=== PATIENT | male | born 1965 | race Caucasian/White ===

== ENCOUNTER 2025-05-02 08:44 | Inpatient (IN) | payer BC ==
[2025-05-02 10:04] LABS: #Basophils Less than 0.03 10x3/uL (0.0-0.2); #Eosinophils Less than 0.03 10x3/uL (0.0-0.7); #Monocytes 0.53 10x3/uL (0.11-0.59); #Neutrophils 16.37 10x3/uL (1.40-6.50); %Basophils 0.1 % (0.0-1.0); %Eosinophils 0.0 % (0.0-10.0); %Lymphocytes 1.0 % (21.0-51.0); %Monocytes 3.0 % (0.0-10.0); %Neutrophils 93.7 % (42.0-75.0); Hematocrit 37.8 % (42.0-52.0); Hemoglobin 12.7 g/dL (14.0-18.0); Mean Corpuscular Hemoglobin 26.8 pg (27.0-31.0); Mean Corpuscular Volume 79.7 fL (78.0-98.0); Platelet Count 78 10x3/uL (130-400); Red Blood Cell (RBC) Count 4.74 mill/uL (4.70-6.10); White Blood Cell (WBC) Count 17.48 10x3/uL (4.8-10.8)
[2025-05-02 10:06] LABS: INR-International Normal Ratio 1.3; PTT 26.6 sec (22.9-36.1); Prothrombin Time 16.6 sec (12.0-14.7)
[2025-05-02 10:21] LABS: Analyzer IN Cardio ER; Base Excess -11.8 mEq/L (-2.0 to +3.0); Calcium, Ionized (venous) 1.15 mmol/L (1.16-1.32); Chloride (VBG) 91 mmol/L (98-106); Hematocrit-VBG 34 % (42.0-52.0); Hemoglobin (Hb) 11.6 g/dL (13.1-17.2); Potassium (VBG) 5.27 mmol/L (3.70-5.30)
[2025-05-02 10:25] LABS: ALT (SGPT) 17 U/L (Less than 45); AST (SGOT) 23 U/L (11-34); Albumin 2.2 g/dL (3.1-4.5); Alkaline Phosphatase 124 U/L (40-110); Anion Gap 19 mmol/L (10-20); BUN (Urea Nitrogen) 93 mg/dL (8.4-25.7); Bilirubin, Total 0.9 mg/dL (0.3-1.2); Calc. Creatinine Clearance 0 mL/min (70-130); Calcium 7.8 mg/dL (7.8-10.44); Carbon Dioxide 14 mmol/L (22-29); Chloride 91 mmol/L (98-107); Globulin 2.4 g/dL (2.4-3.5); Glucose 190 mg/dL (70-105); Potassium 6.4 mmol/L (3.5-5.1); Sodium 119 mmol/L (136-145)
[2025-05-02 10:29] LABS: Actual Bicarbonate (HCO3v) 14.3 mEq/L (22-28)
[2025-05-02 10:30] LABS: Sodium 118 mmol/L (133-146)
[2025-05-02 10:45] LABS: Anisocytosis SLIGHT = 6-15 cells HPF (0-5); Burr Cells MARKED = >16 cells HPF (0-1); Macrocytosis SLIGHT = 6-15 cells HPF (0-5); Microcytosis SLIGHT = 6-15 cells HPF (0-5); Platelet Adequacy Comment Platelets Decreased; Poikilocytosis SLIGHT = 6-15 cells HPF (0-5); Polychromasia MODERATE = 3-4 cells HPF (0-2); Schistocytes SLIGHT = 2-5 cells HPF (0-1)
[2025-05-02] MEDS ORDERED: Albuterol 2.5 MG (3 mL) NEB ONE (10:50)
[2025-05-02] MEDS ORDERED: Sodium Polystyrene Sulfonate 15 GM (60 mL) BOT ONE (10:53)
[2025-05-02] MEDS ORDERED: Dextrose 50% Abboject 50 ML SYRINGE ONE (10:53)
[2025-05-02] MEDS ORDERED: Sodium Bicarb 50 MEQ/50 ML Abboject 8.4% SYRINGE ONE (10:53)
[2025-05-02] MEDS ORDERED: CALCIUM GLUC 1 GM/NS 50 ML IV Bag ONE (10:56)
[2025-05-02 12:54] LABS: Uric Acid 10.6 mg/dL (3.7-7.7)
[2025-05-02 14:00] LABS: Osmolality, Serum 286 mOsm/kg (275-295)
[2025-05-02] MEDS: Albumin 25% 25 GM (100 mL) BOT IVPB SCH ×2 (15:31→18:12)
[2025-05-02] MEDS: Heparin 5,000 UNITS/ML VIAL SC SCH (15:35)
[2025-05-02 15:55] LABS: Fluid, Triglycerides 71 mg/dL (Not Available); Pleural Fluid, Amylase Less than 30 U/L (Not Available); Pleural Fluid, Glucose 187 mg/dL; Pleural Fluid, LDH 121 U/L (Not Available); Pleural Fluid, Protein 2.8 g/dL
[2025-05-02 16:00] LABS: Fluid, pH - Pleural Fld 7.376 (7.60 - 7.66)
[2025-05-02 16:05] LABS: RBC Count-Automated (BF) 3339 /cu.mm; WBC/Nucleated-Auto (BF) 320 /cu.mm
[2025-05-02 16:33] LABS: BF Segmented Neutrophils 85 %; Cell Count Non Hematic 3 %
[2025-05-02] MEDS: Hydrocortisone Sod Succ/PF 100 mg/2 ml Vial IVP SCH (18:12)
[2025-05-02 18:57] LABS: Albumin 1.9 g/dL (3.1-4.5); Anion Gap 23 mmol/L (10-20); BUN (Urea Nitrogen) 86 mg/dL (8.4-25.7); BUN/Creatinine Ratio 25.67; Calc. Creatinine Clearance 0 mL/min (70-130); Calcium 8.0 mg/dL (7.8-10.44); Carbon Dioxide 10 mmol/L (22-29); Chloride 94 mmol/L (98-107); Glucose 186 mg/dL (70-105); Potassium 5.9 mmol/L (3.5-5.1); Sodium 121 mmol/L (136-145)
[2025-05-02 23:12] LABS: Osmolality, Urine 399 mOsm/kg (50-1200)
[2025-05-03 01:50] LABS: Anion Gap 16 mmol/L (10-20); BUN (Urea Nitrogen) 89 mg/dL (8.4-25.7); Calc. Creatinine Clearance 26 mL/min (70-130); Calcium 7.3 mg/dL (7.8-10.44); Carbon Dioxide 18 mmol/L (22-29); Chloride 89 mmol/L (98-107); Glucose 234 mg/dL (70-105); Potassium 5.0 mmol/L (3.5-5.1); Sodium 118 mmol/L (136-145)
[2025-05-03 04:57] LABS: #Basophils Less than 0.03 10x3/uL (0.0-0.2); #Eosinophils Less than 0.03 10x3/uL (0.0-0.7); #Monocytes 0.14 10x3/uL (0.11-0.59); #Neutrophils 3.93 10x3/uL (1.40-6.50); %Basophils 0.0 % (0.0-1.0); %Eosinophils 0.0 % (0.0-10.0); %Lymphocytes 1.9 % (21.0-51.0); %Monocytes 3.3 % (0.0-10.0); %Neutrophils 93.1 % (42.0-75.0); Hematocrit 22.3 % (42.0-52.0); Hemoglobin 7.8 g/dL (14.0-18.0); Mean Corpuscular Hemoglobin 27.0 pg (27.0-31.0); Mean Corpuscular Volume 77.2 fL (78.0-98.0); Platelet Count 45 10x3/uL (130-400); Red Blood Cell (RBC) Count 2.89 mill/uL (4.70-6.10); White Blood Cell (WBC) Count 4.22 10x3/uL (4.8-10.8)
[2025-05-03 06:25] LABS: ALT (SGPT) 12 U/L (Less than 45); AST (SGOT) 15 U/L (11-34); Albumin 2.1 g/dL (3.1-4.5); Alkaline Phosphatase 81 U/L (40-110); Anion Gap 12 mmol/L (10-20); BUN (Urea Nitrogen) 86 mg/dL (8.4-25.7); Bilirubin, Total 1.0 mg/dL (0.3-1.2); Calc. Creatinine Clearance 28 mL/min (70-130); Calcium 7.1 mg/dL (7.8-10.44); Carbon Dioxide 22 mmol/L (22-29); Chloride 91 mmol/L (98-107); Globulin 1.6 g/dL (2.4-3.5); Glucose 279 mg/dL (70-105); Potassium 4.4 mmol/L (3.5-5.1); Sodium 121 mmol/L (136-145); Uric Acid 2.3 mg/dL (3.7-7.7)
[2025-05-03] MEDS: Allopurinol 100 MG TAB PO SCH (07:49)
[2025-05-03] MEDS: Pantoprazole 40 MG DR.TAB PO SCH ×2 (10:58→11:07)
[2025-05-03 11:20] LABS: RBC Count-Automated (BF) 969 /cu.mm; WBC/Nucleated-Auto (BF) 75 /cu.mm
[2025-05-03 12:13] LABS: BF Segmented Neutrophils 31 %; Cell Count Non Hematic 29 %
[2025-05-03 14:16] LABS: Albumin 2.4 g/dL (3.1-4.5); Anion Gap 17 mmol/L (10-20); BUN (Urea Nitrogen) 88 mg/dL (8.4-25.7); BUN/Creatinine Ratio 27.76; Calc. Creatinine Clearance 28 mL/min (70-130); Calcium 7.1 mg/dL (7.8-10.44); Carbon Dioxide 21 mmol/L (22-29); Chloride 92 mmol/L (98-107); Glucose 341 mg/dL (70-105); Potassium 4.2 mmol/L (3.5-5.1); Sodium 126 mmol/L (136-145)
[2025-05-03] MEDS ORDERED: Albuterol 200 PUFF (6.7GM INHALER) INH PRN (16:31)
[2025-05-03] MEDS: Albumin 25% 25 GM (100 mL) BOT IVPB SCH (18:11)
[2025-05-03] MEDS: Hydrocortisone Sod Succ/PF 100 mg/2 ml Vial IVP SCH (20:24)
[2025-05-03] MEDS: CALQUENCE PO SCH (20:25)
[2025-05-04 03:48] LABS: #Basophils Less than 0.03 10x3/uL (0.0-0.2); #Eosinophils Less than 0.03 10x3/uL (0.0-0.7); #Monocytes 0.22 10x3/uL (0.11-0.59); #Neutrophils 4.49 10x3/uL (1.40-6.50); %Basophils 0.2 % (0.0-1.0); %Eosinophils 0.0 % (0.0-10.0); %Lymphocytes 3.6 % (21.0-51.0); %Monocytes 4.4 % (0.0-10.0); %Neutrophils 90.2 % (42.0-75.0); Hematocrit 28.4 % (42.0-52.0); Hemoglobin 9.2 g/dL (14.0-18.0); Mean Corpuscular Hemoglobin 26.7 pg (27.0-31.0); Mean Corpuscular Volume 82.3 fL (78.0-98.0); Platelet Count 30 10x3/uL (130-400); Red Blood Cell (RBC) Count 3.45 mill/uL (4.70-6.10); White Blood Cell (WBC) Count 4.98 10x3/uL (4.8-10.8)
[2025-05-04 03:51] LABS: ALT (SGPT) 13 U/L (Less than 45); AST (SGOT) 15 U/L (11-34); Albumin 2.3 g/dL (3.1-4.5); Alkaline Phosphatase 89 U/L (40-110); Anion Gap 15 mmol/L (10-20); BUN (Urea Nitrogen) 90 mg/dL (8.4-25.7); Bilirubin, Total 0.9 mg/dL (0.3-1.2); Calc. Creatinine Clearance 31 mL/min (70-130); Calcium 7.2 mg/dL (7.8-10.44); Carbon Dioxide 27 mmol/L (22-29); Chloride 92 mmol/L (98-107); Globulin 1.7 g/dL (2.4-3.5); Glucose 236 mg/dL (70-105); Potassium 3.5 mmol/L (3.5-5.1); Sodium 130 mmol/L (136-145)
[2025-05-04] MEDS: Furosemide 20 MG (2 mL) VIAL SLOW IVP SCH ×3 (08:43→20:50)
[2025-05-04] MEDS: Melatonin 3 MG TAB PO PRN (21:20)
[2025-05-05 07:39] LABS: #Basophils Less than 0.03 10x3/uL (0.0-0.2); #Eosinophils Less than 0.03 10x3/uL (0.0-0.7); #Monocytes 0.32 10x3/uL (0.11-0.59); #Neutrophils 3.97 10x3/uL (1.40-6.50); %Basophils 0.0 % (0.0-1.0); %Eosinophils 0.2 % (0.0-10.0); %Lymphocytes 6.4 % (21.0-51.0); %Monocytes 6.8 % (0.0-10.0); %Neutrophils 84.7 % (42.0-75.0); Hematocrit 26.6 % (42.0-52.0); Hemoglobin 8.8 g/dL (14.0-18.0); Mean Corpuscular Hemoglobin 27.2 pg (27.0-31.0); Mean Corpuscular Volume 82.1 fL (78.0-98.0); Platelet Count 19 10x3/uL (130-400); Red Blood Cell (RBC) Count 3.24 mill/uL (4.70-6.10); White Blood Cell (WBC) Count 4.69 10x3/uL (4.8-10.8)
[2025-05-05] MEDS: Hydrocortisone Sod Succ/PF 100 mg/2 ml Vial IVP SCH (09:45)
[2025-05-05] MEDS: Acetaminophen 500 MG TAB PO SCH (13:30)
[2025-05-05] MEDS: diphenhydrAMINE 50 MG/ML VIAL IVP SCH (13:31)
[2025-05-05] MEDS: RITUXIMAB ARRX IVPB SCH (13:38)
[2025-05-05] MEDS: [UNRECOGNIZED DRUG - OTHER] IVPB SCH (13:38)
[2025-05-05] MEDS: Furosemide 40 MG (4 mL) VIAL SLOW IVP SCH (15:33)
[2025-05-05] MEDS: Albumin 25% 25 GM (100 mL) BOT IVPB SCH ×2 (15:56→20:09)
[2025-05-05 17:11] LABS: ALT (SGPT) 19 U/L (Less than 45); AST (SGOT) 23 U/L (11-34); Albumin 2.5 g/dL (3.1-4.5); Alkaline Phosphatase 69 U/L (40-110); Anion Gap 14 mmol/L (10-20); BUN (Urea Nitrogen) 70 mg/dL (8.4-25.7); Bilirubin, Total 0.8 mg/dL (0.3-1.2); Calc. Creatinine Clearance 40 mL/min (70-130); Calcium 7.4 mg/dL (7.8-10.44); Carbon Dioxide 30 mmol/L (22-29); Chloride 93 mmol/L (98-107); Globulin 1.6 g/dL (2.4-3.5); Glucose 179 mg/dL (70-105); Potassium 3.2 mmol/L (3.5-5.1); Sodium 134 mmol/L (136-145); Uric Acid 1.6 mg/dL (3.7-7.7)
[2025-05-06 06:50] LABS: #Basophils Less than 0.03 10x3/uL (0.0-0.2); #Eosinophils Less than 0.03 10x3/uL (0.0-0.7); #Monocytes 0.24 10x3/uL (0.11-0.59); #Neutrophils 4.25 10x3/uL (1.40-6.50); %Basophils 0.2 % (0.0-1.0); %Eosinophils 0.4 % (0.0-10.0); %Lymphocytes 5.4 % (21.0-51.0); %Monocytes 4.9 % (0.0-10.0); %Neutrophils 87.7 % (42.0-75.0); Hematocrit 28.3 % (42.0-52.0); Hemoglobin 8.7 g/dL (14.0-18.0); Mean Corpuscular Hemoglobin 26.6 pg (27.0-31.0); Mean Corpuscular Volume 86.5 fL (78.0-98.0); Platelet Count 20 10x3/uL (130-400); Red Blood Cell (RBC) Count 3.27 mill/uL (4.70-6.10); White Blood Cell (WBC) Count 4.85 10x3/uL (4.8-10.8)
[2025-05-06 07:02] LABS: ALT (SGPT) 17 U/L (Less than 45); AST (SGOT) 17 U/L (11-34); Albumin 2.8 g/dL (3.1-4.5); Anion Gap 17 mmol/L (10-20); BUN (Urea Nitrogen) 79 mg/dL (8.4-25.7); Bilirubin, Total 1.0 mg/dL (0.3-1.2); Calc. Creatinine Clearance 42 mL/min (70-130); Calcium 7.9 mg/dL (7.8-10.44); Carbon Dioxide 26 mmol/L (22-29); Chloride 97 mmol/L (98-107); Globulin 1.6 g/dL (2.4-3.5); Glucose 165 mg/dL (70-105); Magnesium 1.7 mg/dL (1.6-2.6); Potassium 3.5 mmol/L (3.5-5.1); Sodium 136 mmol/L (136-145); Uric Acid 1.9 mg/dL (3.7-7.7)
[2025-05-06 07:10] LABS: Alkaline Phosphatase 71 U/L (40-110)
[2025-05-06] MEDS: Albumin 25% 25 GM (100 mL) BOT IVPB SCH (18:47)
[2025-05-07] MEDS: Albumin 25% 25 GM (100 mL) BOT IVPB SCH (00:02)
[2025-05-07 03:17] LABS: #Basophils Less than 0.03 10x3/uL (0.0-0.2); #Eosinophils Less than 0.03 10x3/uL (0.0-0.7); #Monocytes 0.11 10x3/uL (0.11-0.59); #Neutrophils 2.82 10x3/uL (1.40-6.50); %Basophils 0.0 % (0.0-1.0); %Eosinophils 0.3 % (0.0-10.0); %Lymphocytes 5.4 % (21.0-51.0); %Monocytes 3.5 % (0.0-10.0); %Neutrophils 88.9 % (42.0-75.0); Hematocrit 20.8 % (42.0-52.0); Hemoglobin 6.7 g/dL (14.0-18.0); Mean Corpuscular Hemoglobin 26.7 pg (27.0-31.0); Mean Corpuscular Volume 82.9 fL (78.0-98.0); Platelet Count 18 10x3/uL (130-400); Red Blood Cell (RBC) Count 2.51 mill/uL (4.70-6.10); White Blood Cell (WBC) Count 3.17 10x3/uL (4.8-10.8)
[2025-05-07 03:56] LABS: ALT (SGPT) 12 U/L (Less than 45); AST (SGOT) 12 U/L (11-34); Albumin 3.3 g/dL (3.1-4.5); Alkaline Phosphatase 57 U/L (40-110); Anion Gap 17 mmol/L (10-20); BUN (Urea Nitrogen) 80 mg/dL (8.4-25.7); Bilirubin, Total 1.2 mg/dL (0.3-1.2); Calc. Creatinine Clearance 46 mL/min (70-130); Calcium 8.1 mg/dL (7.8-10.44); Carbon Dioxide 30 mmol/L (22-29); Chloride 94 mmol/L (98-107); Globulin 1.4 g/dL (2.4-3.5); Glucose 174 mg/dL (70-105); Potassium 2.8 mmol/L (3.5-5.1); Sodium 138 mmol/L (136-145)
[2025-05-07 07:40] LABS: Magnesium 1.6 mg/dL (1.6-2.6)
[2025-05-07] MEDS: Allopurinol 100 MG TAB PO SCH (07:41)
[2025-05-07] MEDS: Furosemide 100 MG, Admixture Fee 1 EACH in Sodium Chloride 0.9% 90 ML IVPB SCH (16:47)
[2025-05-08 06:51] VITALS: BMI 24.9
[2025-05-08 10:26] LABS: #Basophils Less than 0.03 10x3/uL (0.0-0.2); #Eosinophils Less than 0.03 10x3/uL (0.0-0.7); #Monocytes 0.19 10x3/uL (0.11-0.59); #Neutrophils 3.73 10x3/uL (1.40-6.50); %Basophils 0.2 % (0.0-1.0); %Eosinophils 0.5 % (0.0-10.0); %Lymphocytes 6.3 % (21.0-51.0); %Monocytes 4.4 % (0.0-10.0); %Neutrophils 87.2 % (42.0-75.0); Hematocrit 24.6 % (42.0-52.0); Hemoglobin 7.8 g/dL (14.0-18.0); Mean Corpuscular Hemoglobin 27.3 pg (27.0-31.0); Mean Corpuscular Volume 86.0 fL (78.0-98.0); Platelet Count 20 10x3/uL (130-400); Red Blood Cell (RBC) Count 2.86 mill/uL (4.70-6.10); White Blood Cell (WBC) Count 4.28 10x3/uL (4.8-10.8)
[2025-05-08 10:35] LABS: Albumin 3.5 g/dL (3.1-4.5)
[2025-05-08 10:43] LABS: Anion Gap 15 mmol/L (10-20); BUN (Urea Nitrogen) 73 mg/dL (8.4-25.7); Calc. Creatinine Clearance 52 mL/min (70-130); Calcium 8.3 mg/dL (7.8-10.44); Carbon Dioxide 32 mmol/L (22-29); Chloride 95 mmol/L (98-107); Glucose 146 mg/dL (70-105); Magnesium 1.4 mg/dL (1.6-2.6); Potassium 2.9 mmol/L (3.5-5.1); Sodium 139 mmol/L (136-145)
[2025-05-08 11:16] LABS: Anisocytosis SLIGHT = 6-15 cells HPF (0-5); Microcytosis SLIGHT = 6-15 cells HPF (0-5); Ovalocytes SLIGHT = 2-5 cells HPF (0-1); Platelet Adequacy Comment Significant Decrease; Polychromasia SLIGHT = 2-3 cells HPF (0-2); Schistocytes SLIGHT = 2-5 cells HPF (0-1)
[2025-05-08] MEDS: Magnesium 2 GM/50 ML(in water) 1 GM in Premix 1 BAG IVPB SCH (13:07)
[2025-05-08] MEDS: Magnesium 2 GM/50 ML(in water) 2 GM in Premix 1 BAG IVPB SCH (18:00)
[2025-05-08] MEDS: Albumin 25% 25 GM (100 mL) BOT IVPB SCH (18:00)
[2025-05-08] MEDS: AcetaZOLAMIDE ER 500 MG CAP PO SCH (18:02)
[2025-05-09] MEDS: Acetaminophen 325 MG TAB PO PRN (06:26)
[2025-05-09 06:27] LABS: #Basophils Less than 0.03 10x3/uL (0.0-0.2); #Eosinophils Less than 0.03 10x3/uL (0.0-0.7); #Monocytes 0.12 10x3/uL (0.11-0.59); #Neutrophils 2.31 10x3/uL (1.40-6.50); %Basophils 0.4 % (0.0-1.0); %Eosinophils 0.4 % (0.0-10.0); %Lymphocytes 7.5 % (21.0-51.0); %Monocytes 4.5 % (0.0-10.0); %Neutrophils 86.5 % (42.0-75.0); Hematocrit 21.7 % (42.0-52.0); Hemoglobin 6.9 g/dL (14.0-18.0); Mean Corpuscular Hemoglobin 27.4 pg (27.0-31.0); Mean Corpuscular Volume 86.1 fL (78.0-98.0); Platelet Count 19 10x3/uL (130-400); Red Blood Cell (RBC) Count 2.52 mill/uL (4.70-6.10); White Blood Cell (WBC) Count 2.67 10x3/uL (4.8-10.8)
[2025-05-09 06:44] LABS: Anion Gap 14 mmol/L (10-20); BUN (Urea Nitrogen) 75 mg/dL (8.4-25.7); Calc. Creatinine Clearance 59 mL/min (70-130); Calcium 8.8 mg/dL (7.8-10.44); Carbon Dioxide 31 mmol/L (22-29); Chloride 99 mmol/L (98-107); Glucose 151 mg/dL (70-105); Magnesium 1.8 mg/dL (1.6-2.6); Potassium 3.3 mmol/L (3.5-5.1); Sodium 141 mmol/L (136-145)
[2025-05-09] MEDS: Potassium Phosphate 22 MMOL in Sodium Chloride 0.9% 250 ML 250 ML IVPB SCH (08:52)
[2025-05-09] MEDS: AcetaZOLAMIDE ER 500 MG CAP PO SCH (08:55)
[2025-05-09 23:50] LABS: Influenza A by NAA Not Detected (NotDetected); Influenza B by NAA Not Detected (NotDetected); SARS-CoV-2 NAA Rapid Test Not Detected (NotDetected)
[2025-05-10 00:03] LABS: #Basophils Less than 0.03 10x3/uL (0.0-0.2); #Eosinophils Less than 0.03 10x3/uL (0.0-0.7); #Monocytes 0.19 10x3/uL (0.11-0.59); #Neutrophils 3.52 10x3/uL (1.40-6.50); %Basophils 0.3 % (0.0-1.0); %Eosinophils 0.3 % (0.0-10.0); %Lymphocytes 5.5 % (21.0-51.0); %Monocytes 4.8 % (0.0-10.0); %Neutrophils 88.1 % (42.0-75.0); Hematocrit 25.0 % (42.0-52.0); Hemoglobin 8.0 g/dL (14.0-18.0); Mean Corpuscular Hemoglobin 27.9 pg (27.0-31.0); Mean Corpuscular Volume 87.1 fL (78.0-98.0); Platelet Count 26 10x3/uL (130-400); Red Blood Cell (RBC) Count 2.87 mill/uL (4.70-6.10); White Blood Cell (WBC) Count 3.99 10x3/uL (4.8-10.8)
[2025-05-10 00:35] LABS: CAUTI Indications for Culture Fever or rigors; Glucose, Urine (Dipstick) Normal (Negative); Leukocyte Negative Leu/uL (Negative); Protein, Urine (Dipstick) 30 mg/dL (Neg-Trace); RBC/HPF 0-3 HPF (0-3); Specific Gravity, Urine 1.012 (1.002-1.036); WBC/HPF 0-3 HPF (0-3)
[2025-05-10 00:36] LABS: Bacteria/HPF 1+ HPF (None Seen)
[2025-05-10 00:37] LABS: Urine Culture Reflex No No
[2025-05-10 00:41] LABS: Anion Gap 17 mmol/L (10-20); BUN (Urea Nitrogen) 65 mg/dL (8.4-25.7); Calc. Creatinine Clearance 61 mL/min (70-130); Calcium 8.6 mg/dL (7.8-10.44); Carbon Dioxide 27 mmol/L (22-29); Chloride 101 mmol/L (98-107); Glucose 143 mg/dL (70-105); Magnesium 1.9 mg/dL (1.6-2.6); Potassium 3.6 mmol/L (3.5-5.1); Sodium 141 mmol/L (136-145)
[2025-05-10] MEDS: predniSONE 20 MG TAB PO SCH (08:54)
[2025-05-10 09:28] LABS: #Basophils Less than 0.03 10x3/uL (0.0-0.2); #Eosinophils Less than 0.03 10x3/uL (0.0-0.7); #Monocytes 0.17 10x3/uL (0.11-0.59); #Neutrophils 2.84 10x3/uL (1.40-6.50); %Basophils 0.3 % (0.0-1.0); %Eosinophils 0.3 % (0.0-10.0); %Lymphocytes 5.5 % (21.0-51.0); %Monocytes 5.2 % (0.0-10.0); %Neutrophils 86.6 % (42.0-75.0); Hematocrit 23.8 % (42.0-52.0); Hemoglobin 7.5 g/dL (14.0-18.0); Mean Corpuscular Hemoglobin 27.8 pg (27.0-31.0); Mean Corpuscular Volume 88.1 fL (78.0-98.0); Platelet Count 23 10x3/uL (130-400); Red Blood Cell (RBC) Count 2.70 mill/uL (4.70-6.10); White Blood Cell (WBC) Count 3.28 10x3/uL (4.8-10.8)
[2025-05-10 09:31] LABS: ALT (SGPT) 17 U/L (Less than 45); AST (SGOT) 16 U/L (11-34); Albumin 3.1 g/dL (3.1-4.5); Alkaline Phosphatase 98 U/L (40-110); Anion Gap 17 mmol/L (10-20); BUN (Urea Nitrogen) 65 mg/dL (8.4-25.7); Bilirubin, Total 1.3 mg/dL (0.3-1.2); Calc. Creatinine Clearance 65 mL/min (70-130); Calcium 8.5 mg/dL (7.8-10.44); Carbon Dioxide 27 mmol/L (22-29); Chloride 102 mmol/L (98-107); Globulin 1.8 g/dL (2.4-3.5); Glucose 240 mg/dL (70-105); Magnesium 1.7 mg/dL (1.6-2.6); Potassium 3.5 mmol/L (3.5-5.1); Sodium 142 mmol/L (136-145)
[2025-05-10 10:01] LABS: Anisocytosis SLIGHT = 6-15 cells HPF (0-5); Platelet Adequacy Comment Significant Decrease; Polychromasia SLIGHT = 2-3 cells HPF (0-2); Schistocytes SLIGHT = 2-5 cells HPF (0-1)
[2025-05-10 12:53] VITALS: BMI 24.7
[2025-05-10] MEDS: Potassium Phosphate 30 MMOL in Sodium Chloride 0.9% 250 ML 250 ML IVPB SCH (13:36)
[2025-05-10] MEDS: Magnesium Oxide 400 MG TAB PO SCH (20:08)
[2025-05-11 05:53] LABS: #Basophils Less than 0.03 10x3/uL (0.0-0.2); #Eosinophils Less than 0.03 10x3/uL (0.0-0.7); #Monocytes 0.19 10x3/uL (0.11-0.59); #Neutrophils 2.56 10x3/uL (1.40-6.50); %Basophils 0.3 % (0.0-1.0); %Eosinophils 0.3 % (0.0-10.0); %Lymphocytes 8.8 % (21.0-51.0); %Monocytes 6.2 % (0.0-10.0); %Neutrophils 83.1 % (42.0-75.0); Hematocrit 24.8 % (42.0-52.0); Hemoglobin 7.7 g/dL (14.0-18.0); Mean Corpuscular Hemoglobin 27.5 pg (27.0-31.0); Mean Corpuscular Volume 88.6 fL (78.0-98.0); Platelet Count 23 10x3/uL (130-400); Red Blood Cell (RBC) Count 2.80 mill/uL (4.70-6.10); White Blood Cell (WBC) Count 3.08 10x3/uL (4.8-10.8)
[2025-05-11 06:09] LABS: Albumin 3.2 g/dL (3.1-4.5); Anion Gap 16 mmol/L (10-20); BUN (Urea Nitrogen) 63 mg/dL (8.4-25.7); BUN/Creatinine Ratio 42.86; Calc. Creatinine Clearance 66 mL/min (70-130); Calcium 8.9 mg/dL (7.8-10.44); Carbon Dioxide 27 mmol/L (22-29); Chloride 102 mmol/L (98-107); Glucose 136 mg/dL (70-105); Magnesium 1.7 mg/dL (1.6-2.6); Potassium 3.5 mmol/L (3.5-5.1); Sodium 141 mmol/L (136-145)
[2025-05-11] MEDS: predniSONE 20 MG TAB PO SCH (08:30)
[2025-05-11] MEDS: Albumin 25% 25 GM (100 mL) BOT IVPB SCH (11:10)
[2025-05-11] MEDS ORDERED: CALQUENCE 100 MG PO SCH (21:00)
[2025-05-12 05:36] LABS: Anion Gap 18 mmol/L (10-20); BUN (Urea Nitrogen) 65 mg/dL (8.4-25.7); Calc. Creatinine Clearance 67 mL/min (70-130); Calcium 9.2 mg/dL (7.8-10.44); Carbon Dioxide 27 mmol/L (22-29); Chloride 102 mmol/L (98-107); Glucose 160 mg/dL (70-105); Magnesium 1.9 mg/dL (1.6-2.6); Potassium 3.7 mmol/L (3.5-5.1); Sodium 143 mmol/L (136-145)
[2025-05-12 06:22] LABS: #Basophils Less than 0.03 10x3/uL (0.0-0.2); #Eosinophils Less than 0.03 10x3/uL (0.0-0.7); #Monocytes 0.17 10x3/uL (0.11-0.59); #Neutrophils 2.95 10x3/uL (1.40-6.50); %Basophils 0.3 % (0.0-1.0); %Eosinophils 0.0 % (0.0-10.0); %Lymphocytes 6.0 % (21.0-51.0); %Monocytes 5.1 % (0.0-10.0); %Neutrophils 88.0 % (42.0-75.0); Hematocrit 24.2 % (42.0-52.0); Hemoglobin 7.5 g/dL (14.0-18.0); Mean Corpuscular Hemoglobin 27.6 pg (27.0-31.0); Mean Corpuscular Volume 89.0 fL (78.0-98.0); Platelet Count 28 10x3/uL (130-400); Red Blood Cell (RBC) Count 2.72 mill/uL (4.70-6.10); White Blood Cell (WBC) Count 3.35 10x3/uL (4.8-10.8)
[2025-05-12] MEDS: Albumin 25% 25 GM (100 mL) BOT IVPB SCH (08:28)
[2025-05-13 05:34] LABS: #Basophils Less than 0.03 10x3/uL (0.0-0.2); #Eosinophils Less than 0.03 10x3/uL (0.0-0.7); #Monocytes 0.14 10x3/uL (0.11-0.59); #Neutrophils 3.26 10x3/uL (1.40-6.50); %Basophils 0.3 % (0.0-1.0); %Eosinophils 0.0 % (0.0-10.0); %Lymphocytes 6.3 % (21.0-51.0); %Monocytes 3.8 % (0.0-10.0); %Neutrophils 88.5 % (42.0-75.0); Hematocrit 25.3 % (42.0-52.0); Hemoglobin 8.0 g/dL (14.0-18.0); Mean Corpuscular Hemoglobin 28.1 pg (27.0-31.0); Mean Corpuscular Volume 88.8 fL (78.0-98.0); Platelet Count 32 10x3/uL (130-400); Red Blood Cell (RBC) Count 2.85 mill/uL (4.70-6.10); White Blood Cell (WBC) Count 3.68 10x3/uL (4.8-10.8)
[2025-05-13 05:40] LABS: Uric Acid 6.4 mg/dL (3.7-7.7)
[2025-05-13 05:48] LABS: Anion Gap 14 mmol/L (10-20); BUN (Urea Nitrogen) 74 mg/dL (8.4-25.7); Calc. Creatinine Clearance 62 mL/min (70-130); Calcium 9.6 mg/dL (7.8-10.44); Carbon Dioxide 27 mmol/L (22-29); Chloride 106 mmol/L (98-107); Glucose 145 mg/dL (70-105); Potassium 4.2 mmol/L (3.5-5.1); Sodium 143 mmol/L (136-145)
[2025-05-13] MEDS: Albumin 25% 25 GM (100 mL) BOT IVPB SCH (06:23)
[2025-05-13] MEDS: Torsemide 20 MG TAB PO SCH (08:17)
[2025-05-14 05:13] LABS: #Basophils Less than 0.03 10x3/uL (0.0-0.2); #Eosinophils Less than 0.03 10x3/uL (0.0-0.7); #Monocytes 0.16 10x3/uL (0.11-0.59); #Neutrophils 2.47 10x3/uL (1.40-6.50); %Basophils 0.3 % (0.0-1.0); %Eosinophils 0.0 % (0.0-10.0); %Lymphocytes 7.9 % (21.0-51.0); %Monocytes 5.5 % (0.0-10.0); %Neutrophils 84.6 % (42.0-75.0); Hematocrit 24.4 % (42.0-52.0); Hemoglobin 7.3 g/dL (14.0-18.0); Mean Corpuscular Hemoglobin 26.9 pg (27.0-31.0); Mean Corpuscular Volume 90.0 fL (78.0-98.0); Platelet Count 37 10x3/uL (130-400); Red Blood Cell (RBC) Count 2.71 mill/uL (4.70-6.10); White Blood Cell (WBC) Count 2.92 10x3/uL (4.8-10.8)
[2025-05-14 05:34] LABS: Anion Gap 18 mmol/L (10-20); BUN (Urea Nitrogen) 84 mg/dL (8.4-25.7); Calc. Creatinine Clearance 64 mL/min (70-130); Calcium 9.9 mg/dL (7.8-10.44); Carbon Dioxide 24 mmol/L (22-29); Chloride 109 mmol/L (98-107); Glucose 208 mg/dL (70-105); Potassium 4.5 mmol/L (3.5-5.1); Sodium 146 mmol/L (136-145)
[2025-05-14] MEDS: Allopurinol 100 MG TAB PO SCH (08:32)
[2025-05-14] MEDS ORDERED: Dextrose 50% Abboject 50 ML SYRINGE SLOW IVP PRN (08:33)
[2025-05-14] MEDS ORDERED: Glucagon 1 MG/ML KIT IM PRN (08:33)
[2025-05-15] MEDS: predniSONE 20 MG TAB PO SCH (08:15)
[2025-05-15 10:42] LABS: #Basophils Less than 0.03 10x3/uL (0.0-0.2); #Eosinophils Less than 0.03 10x3/uL (0.0-0.7); #Monocytes 0.19 10x3/uL (0.11-0.59); #Neutrophils 2.92 10x3/uL (1.40-6.50); %Basophils 0.3 % (0.0-1.0); %Eosinophils 0.3 % (0.0-10.0); %Lymphocytes 8.1 % (21.0-51.0); %Monocytes 5.5 % (0.0-10.0); %Neutrophils 84.6 % (42.0-75.0); Hematocrit 26.7 % (42.0-52.0); Hemoglobin 8.2 g/dL (14.0-18.0); Mean Corpuscular Hemoglobin 27.6 pg (27.0-31.0); Mean Corpuscular Volume 89.9 fL (78.0-98.0); Platelet Count 41 10x3/uL (130-400); Red Blood Cell (RBC) Count 2.97 mill/uL (4.70-6.10); White Blood Cell (WBC) Count 3.45 10x3/uL (4.8-10.8)
[2025-05-15 11:15] LABS: Anion Gap 12 mmol/L (10-20); BUN (Urea Nitrogen) 81 mg/dL (8.4-25.7); Calc. Creatinine Clearance 76 mL/min (70-130); Calcium 9.6 mg/dL (7.8-10.44); Carbon Dioxide 23 mmol/L (22-29); Chloride 110 mmol/L (98-107); Glucose 205 mg/dL (70-105); Magnesium 2.1 mg/dL (1.6-2.6); Potassium 4.6 mmol/L (3.5-5.1); Sodium 140 mmol/L (136-145)
[2025-05-15 11:41] LABS: Anisocytosis SLIGHT = 6-15 cells HPF (0-5); Platelet Adequacy Comment Significant Decrease; Polychromasia SLIGHT = 2-3 cells HPF (0-2); Schistocytes SLIGHT = 2-5 cells HPF (0-1)
[2025-05-16 05:54] LABS: #Basophils Less than 0.03 10x3/uL (0.0-0.2); #Eosinophils Less than 0.03 10x3/uL (0.0-0.7); #Monocytes 0.20 10x3/uL (0.11-0.59); #Neutrophils 2.81 10x3/uL (1.40-6.50); %Basophils 0.3 % (0.0-1.0); %Eosinophils 0.3 % (0.0-10.0); %Lymphocytes 10.0 % (21.0-51.0); %Monocytes 5.9 % (0.0-10.0); %Neutrophils 82.6 % (42.0-75.0); Hematocrit 29.0 % (42.0-52.0); Hemoglobin 8.8 g/dL (14.0-18.0); Mean Corpuscular Hemoglobin 26.9 pg (27.0-31.0); Mean Corpuscular Volume 88.7 fL (78.0-98.0); Platelet Count 45 10x3/uL (130-400); Red Blood Cell (RBC) Count 3.27 mill/uL (4.70-6.10); White Blood Cell (WBC) Count 3.40 10x3/uL (4.8-10.8)
[2025-05-16 06:00] LABS: Anion Gap 17 mmol/L (10-20); BUN (Urea Nitrogen) 77 mg/dL (8.4-25.7); Calc. Creatinine Clearance 75 mL/min (70-130); Calcium 9.8 mg/dL (7.8-10.44); Carbon Dioxide 21 mmol/L (22-29); Chloride 108 mmol/L (98-107); Glucose 157 mg/dL (70-105); Potassium 4.2 mmol/L (3.5-5.1); Sodium 142 mmol/L (136-145)
[2025-05-16] MEDS: Sodium Bicarbonate Tab 325 MG TAB PO SCH (08:27)
[2025-05-16 12:12] VITALS: BP 118/73; TEMP 97.6
[2025-05-17] MEDS ORDERED: Spironolactone 25 MG TAB PO SCH (09:00)
== END 2025-05-16 12:53 | disposition home or self-care (01) | DRG 682 ==
LOC: ERS 08:44 → CCU 12:11 → IMCU/EMU 05-03 11:19 → MSONC 05-09 15:53
PROVIDERS: ADMIT Student in an Organized Health Care Education/Training Program; ATTEND Internal Medicine
PROC: 0W9B3ZZ Drainage of Left Pleural Cavity, Percutaneous Approach (ICD-10-PCS; principal; 2025-05-02)
PROC: 0W993ZZ Drainage of Right Pleural Cavity, Percutaneous Approach (ICD-10-PCS; 2025-05-02)
PROC: 30233J1 Transfusion of Nonautologous Serum Albumin into Peripheral Vein, Percutaneous Approach (ICD-10-PCS; 2025-05-02)
PROC: 30233N1 Transfusion of Nonautologous Red Blood Cells into Peripheral Vein, Percutaneous Approach (ICD-10-PCS; 2025-05-07)
PROC: 30233R1 Transfusion of Nonautologous Platelets into Peripheral Vein, Percutaneous Approach (ICD-10-PCS; 2025-05-08)
DX: N17.9 Acute kidney failure, unspecified (principal); E43 Unspecified severe protein-calorie malnutrition; J96.01 Acute respiratory failure with hypoxia; R65.11 Systemic inflammatory response syndrome (SIRS) of non-infectious origin with acute organ dysfunction; E87.1 Hypo-osmolality and hyponatremia; C91.10 Chronic lymphocytic leukemia of B-cell type not having achieved remission; E87.29 Other acidosis; E87.21 Acute metabolic acidosis; J90 Pleural effusion, not elsewhere classified; D61.818 Other pancytopenia; E87.3 Alkalosis; Z66 Do not resuscitate; Z51.5 Encounter for palliative care; Z92.25 Personal history of immunosuppression therapy; E87.5 Hyperkalemia; Z98.890 Other specified postprocedural states; R63.8 Other symptoms and signs concerning food and fluid intake; E88.3 Tumor lysis syndrome; D69.6 Thrombocytopenia, unspecified; R73.9 Hyperglycemia, unspecified; I95.9 Hypotension, unspecified; E83.39 Other disorders of phosphorus metabolism; E79.0 Hyperuricemia without signs of inflammatory arthritis and tophaceous disease; R53.81 Other malaise; D64.9 Anemia, unspecified; E87.6 Hypokalemia; N18.2 Chronic kidney disease, stage 2 (mild); R91.1 Solitary pulmonary nodule; Z79.899 Other long term (current) drug therapy
CPT/HCPCS: 36415; 36416; 36430; 71045; 71250; 74177; 80048; 80053; 80069; 81001; 82040; 82150; 82805; 82945; 83036; 83605; 83615; 83690; 83735; 83880; 83930; 83935; 83986; 84100; 84157; 84300; 84478; 84484; 84550; 85025; 85060; 85610; 85730; 86850; 86900; 86901; 87040; 87116; 87206; 87636; 88112; 88305; 89051; 93005; 93306; 94760; 96365; 96368; 96375; 96376; J0613; J1200; J1644; J1720; J1815; J1940; J2783; J3010; J3475; J7030; J7042; J7050; J7070; J7120; J7131; J7512; J7611; J7999; P9016; P9035; P9047; Q5123

== ENCOUNTER 2025-06-01 13:09 | Inpatient (IN) | payer BC ==
[2025-06-01 14:32] LABS: Hematocrit 30.2 % (42.0-52.0); Hemoglobin 10.2 g/dL (14.0-18.0); Mean Corpuscular Hemoglobin 27.3 pg (27.0-31.0); Mean Corpuscular Volume 80.7 fL (78.0-98.0); Platelet Count 54 10x3/uL (130-400); Red Blood Cell (RBC) Count 3.74 mill/uL (4.70-6.10); White Blood Cell (WBC) Count 13.32 10x3/uL (4.8-10.8)
[2025-06-01 14:46] LABS: ALT (SGPT) 12 U/L (Less than 45); AST (SGOT) 14 U/L (11-34); Albumin 2.5 g/dL (3.1-4.5); Alkaline Phosphatase 74 U/L (40-110); Anion Gap 18 mmol/L (10-20); BUN (Urea Nitrogen) 79 mg/dL (8.4-25.7); Bilirubin, Total 1.3 mg/dL (0.3-1.2); Calc. Creatinine Clearance 0 mL/min (70-130); Calcium 7.7 mg/dL (7.8-10.44); Carbon Dioxide 20 mmol/L (22-29); Chloride 88 mmol/L (98-107); Globulin 1.8 g/dL (2.4-3.5); Glucose 187 mg/dL (70-105); Potassium 5.4 mmol/L (3.5-5.1); Sodium 121 mmol/L (136-145)
[2025-06-01 14:59] LABS: #Basophils Less than 0.03 10x3/uL (0.0-0.2); #Eosinophils Less than 0.03 10x3/uL (0.0-0.7); #Monocytes 0.29 10x3/uL (0.11-0.59); #Neutrophils 12.54 10x3/uL (1.40-6.50); %Basophils 0.1 % (0.0-1.0); %Eosinophils 0.0 % (0.0-10.0); %Lymphocytes 1.8 % (21.0-51.0); %Monocytes 2.2 % (0.0-10.0); %Neutrophils 93.2 % (42.0-75.0)
[2025-06-01 15:11] LABS: Anisocytosis SLIGHT = 6-15 cells HPF (0-5); Burr Cells MODERATE= 6-15 cells HPF (0-1); Macrocytosis SLIGHT = 6-15 cells HPF (0-5); Microcytosis SLIGHT = 6-15 cells HPF (0-5); Ovalocytes SLIGHT = 2-5 cells HPF (0-1); Platelet Adequacy Comment Platelets Decreased
[2025-06-01] MEDS ORDERED: Ondansetron PF 4 MG/2 ML Vial IVP PRN (18:00)
[2025-06-01] MEDS: Furosemide 40 MG (4 mL) VIAL SLOW IVP SCH (19:44)
[2025-06-01 20:24] LABS: Anion Gap 14 mmol/L (10-20); BUN (Urea Nitrogen) 76 mg/dL (8.4-25.7); Calc. Creatinine Clearance 45 mL/min (70-130); Calcium 7.5 mg/dL (7.8-10.44); Carbon Dioxide 21 mmol/L (22-29); Chloride 90 mmol/L (98-107); Glucose 254 mg/dL (70-105); Potassium 5.0 mmol/L (3.5-5.1); Sodium 120 mmol/L (136-145)
[2025-06-01 20:26] LABS: Uric Acid 9.6 mg/dL (3.7-7.7)
[2025-06-01 20:26] LABS: CAUTI Indications for Culture Immunosuppressed; Glucose, Urine (Dipstick) Normal (Negative); Leukocyte Negative Leu/uL (Negative); Protein, Urine (Dipstick) 10 mg/dL (Neg-Trace); RBC/HPF 0-3 HPF (0-3); Specific Gravity, Urine 1.015 (1.002-1.036); WBC/HPF 0-3 HPF (0-3)
[2025-06-01 20:30] LABS: Bacteria/HPF 1+ HPF (None Seen)
[2025-06-01 20:32] LABS: Urine Culture Reflex Yes Yes
[2025-06-01] MEDS: Albumin 25% 25 GM (100 mL) BOT IVPB SCH (23:47)
[2025-06-02] MEDS ORDERED: Furosemide 40 MG (4 mL) VIAL SLOW IVP SCH (06:00)
[2025-06-02] MEDS: Furosemide 40 MG (4 mL) VIAL SLOW IVP SCH (06:31)
[2025-06-02 06:46] LABS: #Basophils Less than 0.03 10x3/uL (0.0-0.2); #Eosinophils Less than 0.03 10x3/uL (0.0-0.7); #Monocytes 0.36 10x3/uL (0.11-0.59); #Neutrophils 7.92 10x3/uL (1.40-6.50); %Basophils 0.1 % (0.0-1.0); %Eosinophils 0.2 % (0.0-10.0); %Lymphocytes 6.0 % (21.0-51.0); %Monocytes 4.0 % (0.0-10.0); %Neutrophils 87.0 % (42.0-75.0); Hematocrit 30.5 % (42.0-52.0); Hemoglobin 10.4 g/dL (14.0-18.0); Mean Corpuscular Hemoglobin 27.2 pg (27.0-31.0); Mean Corpuscular Volume 79.8 fL (78.0-98.0); Platelet Count 37 10x3/uL (130-400); Red Blood Cell (RBC) Count 3.82 mill/uL (4.70-6.10); White Blood Cell (WBC) Count 9.11 10x3/uL (4.8-10.8)
[2025-06-02 06:50] LABS: Albumin 2.5 g/dL (3.1-4.5); Anion Gap 16 mmol/L (10-20); BUN (Urea Nitrogen) 74 mg/dL (8.4-25.7); BUN/Creatinine Ratio 39.15; Calc. Creatinine Clearance 49 mL/min (70-130); Calcium 7.7 mg/dL (7.8-10.44); Carbon Dioxide 19 mmol/L (22-29); Chloride 93 mmol/L (98-107); Glucose 164 mg/dL (70-105); Magnesium 2.0 mg/dL (1.6-2.6); Potassium 5.1 mmol/L (3.5-5.1); Sodium 123 mmol/L (136-145)
[2025-06-02] MEDS: Sodium Bicarbonate Tab 325 MG TAB PO SCH (08:05)
[2025-06-02] MEDS: predniSONE 20 MG TAB PO SCH (08:05)
[2025-06-02] MEDS: Enoxaparin 40 MG (0.4 mL) SYRINGE SC SCH (10:17)
[2025-06-02 15:50] LABS: INR-International Normal Ratio 1.4; PTT 31.7 sec (22.9-36.1); Prothrombin Time 17.3 sec (12.0-14.7)
[2025-06-02 15:51] LABS: D-Dimer Test 2.89 mcg/mL (0.27-0.43)
[2025-06-02 15:54] LABS: Fibrinogen 153 mg/dL (253-463)
[2025-06-02 15:56] LABS: Platelet Count 35 10x3/uL (130-400)
[2025-06-02] MEDS: Senokot 8.6 MG TAB PO SCH (20:50)
[2025-06-03 08:18] LABS: Hematocrit 29.5 % (42.0-52.0); Hemoglobin 9.9 g/dL (14.0-18.0); Mean Corpuscular Hemoglobin 27.3 pg (27.0-31.0); Mean Corpuscular Volume 80.2 fL (78.0-98.0); Platelet Count 31 10x3/uL (130-400); Red Blood Cell (RBC) Count 3.63 mill/uL (4.70-6.10); White Blood Cell (WBC) Count 6.46 10x3/uL (4.8-10.8)
[2025-06-03] MEDS: Albumin 25% 25 GM (100 mL) BOT IVPB SCH ×2 (08:24→11:55)
[2025-06-03 08:26] LABS: ALT (SGPT) 11 U/L (Less than 45); AST (SGOT) 12 U/L (11-34); Albumin 2.9 g/dL (3.1-4.5); Alkaline Phosphatase 61 U/L (40-110); Anion Gap 16 mmol/L (10-20); BUN (Urea Nitrogen) 68 mg/dL (8.4-25.7); Bilirubin, Total 1.1 mg/dL (0.3-1.2); Calc. Creatinine Clearance 58 mL/min (70-130); Calcium 8.0 mg/dL (7.8-10.44); Carbon Dioxide 23 mmol/L (22-29); Chloride 94 mmol/L (98-107); Globulin 1.4 g/dL (2.4-3.5); Glucose 177 mg/dL (70-105); Potassium 4.0 mmol/L (3.5-5.1); Sodium 129 mmol/L (136-145); Uric Acid 9.2 mg/dL (3.7-7.7)
[2025-06-03] MEDS: LevoFLOXacin 750 mg/D5W 750 MG in Premix 1 BAG IVPB SCH (20:38)
[2025-06-04 07:39] LABS: ALT (SGPT) 8 U/L (Less than 45); AST (SGOT) 12 U/L (11-34); Albumin 3.3 g/dL (3.1-4.5); Alkaline Phosphatase 46 U/L (40-110); Anion Gap 16 mmol/L (10-20); BUN (Urea Nitrogen) 53 mg/dL (8.4-25.7); Bilirubin, Total 1.2 mg/dL (0.3-1.2); Calc. Creatinine Clearance 72 mL/min (70-130); Calcium 8.0 mg/dL (7.8-10.44); Carbon Dioxide 24 mmol/L (22-29); Chloride 92 mmol/L (98-107); Globulin 1.1 g/dL (2.4-3.5); Glucose 156 mg/dL (70-105); Potassium 3.4 mmol/L (3.5-5.1); Sodium 129 mmol/L (136-145); Uric Acid 8.4 mg/dL (3.7-7.7)
[2025-06-04 08:20] LABS: Ovalocytes MODERATE= 6-15 cells HPF (0-1); Platelet Adequacy Comment Significant Decrease
[2025-06-04 08:23] LABS: Hematocrit 23.9 % (42.0-52.0); Hemoglobin 7.9 g/dL (14.0-18.0); Mean Corpuscular Hemoglobin 27.5 pg (27.0-31.0); Mean Corpuscular Volume 82.9 fL (78.0-98.0); Platelet Count 27 10x3/uL (130-400); Red Blood Cell (RBC) Count 2.87 mill/uL (4.70-6.10); White Blood Cell (WBC) Count 2.88 10x3/uL (4.8-10.8)
[2025-06-04] MEDS: NS 0.9% w/ 20 MEQ KCL 1,000 ML/1,000 ML BAG IV SCH (12:57)
[2025-06-05 06:47] LABS: Hematocrit 27.5 % (42.0-52.0); Hemoglobin 9.0 g/dL (14.0-18.0); Mean Corpuscular Hemoglobin 27.1 pg (27.0-31.0); Mean Corpuscular Volume 82.8 fL (78.0-98.0); Platelet Count 30 10x3/uL (130-400); Red Blood Cell (RBC) Count 3.32 mill/uL (4.70-6.10); White Blood Cell (WBC) Count 3.18 10x3/uL (4.8-10.8)
[2025-06-05 06:48] LABS: ALT (SGPT) 10 U/L (Less than 45); AST (SGOT) 16 U/L (11-34); Albumin 2.6 g/dL (3.1-4.5); Alkaline Phosphatase 53 U/L (40-110); Anion Gap 12 mmol/L (10-20); BUN (Urea Nitrogen) 52 mg/dL (8.4-25.7); Bilirubin, Total 1.0 mg/dL (0.3-1.2); Calc. Creatinine Clearance 83 mL/min (70-130); Calcium 7.6 mg/dL (7.8-10.44); Carbon Dioxide 25 mmol/L (22-29); Chloride 96 mmol/L (98-107); Globulin 1.5 g/dL (2.4-3.5); Glucose 152 mg/dL (70-105); Potassium 3.5 mmol/L (3.5-5.1); Sodium 129 mmol/L (136-145); Uric Acid 7.5 mg/dL (3.7-7.7)
[2025-06-05] MEDS: Albumin 25% 25 GM (100 mL) BOT IVPB SCH (11:26)
[2025-06-05] MEDS: predniSONE 20 MG TAB PO SCH (15:24)
[2025-06-05] MEDS: Pantoprazole 40 MG DR.TAB PO SCH (15:24)
[2025-06-06 06:20] LABS: ALT (SGPT) 10 U/L (Less than 45); AST (SGOT) 12 U/L (11-34); Albumin 3.1 g/dL (3.1-4.5); Alkaline Phosphatase 49 U/L (40-110); Anion Gap 15 mmol/L (10-20); BUN (Urea Nitrogen) 59 mg/dL (8.4-25.7); Bilirubin, Total 1.0 mg/dL (0.3-1.2); Calc. Creatinine Clearance 71 mL/min (70-130); Calcium 8.1 mg/dL (7.8-10.44); Carbon Dioxide 22 mmol/L (22-29); Chloride 97 mmol/L (98-107); Globulin 1.2 g/dL (2.4-3.5); Glucose 200 mg/dL (70-105); Potassium 3.8 mmol/L (3.5-5.1); Sodium 130 mmol/L (136-145); Uric Acid 7.3 mg/dL (3.7-7.7)
[2025-06-06 06:26] LABS: Hematocrit 25.1 % (42.0-52.0); Hemoglobin 8.2 g/dL (14.0-18.0); Mean Corpuscular Hemoglobin 27.8 pg (27.0-31.0); Mean Corpuscular Volume 85.1 fL (78.0-98.0); Platelet Count 32 10x3/uL (130-400); Red Blood Cell (RBC) Count 2.95 mill/uL (4.70-6.10); White Blood Cell (WBC) Count 2.35 10x3/uL (4.8-10.8)
[2025-06-06] MEDS: predniSONE 20 MG TAB PO SCH (08:19)
[2025-06-06] MEDS: Pantoprazole 40 MG DR.TAB PO SCH (08:20)
[2025-06-06] MEDS: Albumin 25% 25 GM (100 mL) BOT IVPB SCH (09:32)
[2025-06-07 05:46] LABS: ALT (SGPT) 10 U/L (Less than 45); AST (SGOT) 13 U/L (11-34); Albumin 3.7 g/dL (3.1-4.5); Alkaline Phosphatase 46 U/L (40-110); Anion Gap 11 mmol/L (10-20); BUN (Urea Nitrogen) 52 mg/dL (8.4-25.7); Bilirubin, Total 1.1 mg/dL (0.3-1.2); Calc. Creatinine Clearance 84 mL/min (70-130); Calcium 8.6 mg/dL (7.8-10.44); Carbon Dioxide 26 mmol/L (22-29); Chloride 98 mmol/L (98-107); Globulin 1.1 g/dL (2.4-3.5); Glucose 206 mg/dL (70-105); Potassium 3.4 mmol/L (3.5-5.1); Sodium 132 mmol/L (136-145)
[2025-06-07 05:47] LABS: Hematocrit 20.7 % (42.0-52.0); Hemoglobin 6.7 g/dL (14.0-18.0); Mean Corpuscular Hemoglobin 27.2 pg (27.0-31.0); Mean Corpuscular Volume 84.1 fL (78.0-98.0); Platelet Count 25 10x3/uL (130-400); Red Blood Cell (RBC) Count 2.46 mill/uL (4.70-6.10); Uric Acid 6.5 mg/dL (3.7-7.7); White Blood Cell (WBC) Count 1.18 10x3/uL (4.8-10.8)
[2025-06-07] MEDS: Sodium Bicarbonate Tab 325 MG TAB PO SCH (08:03)
[2025-06-07 08:13] LABS: Iron 63 ug/dL (65-175); Iron Binding Capacity, Total 98 mcg/dL (261-462)
[2025-06-07 13:07] LABS: Platelet Count 30 10x3/uL (130-400)
[2025-06-07 13:12] LABS: INR-International Normal Ratio 1.4; PTT 31.6 sec (22.9-36.1); Prothrombin Time 16.8 sec (12.0-14.7)
[2025-06-07 13:15] LABS: D-Dimer Test 2.38 mcg/mL (0.27-0.43)
[2025-06-07 13:17] LABS: Fibrinogen 129 mg/dL (253-463)
[2025-06-07] MEDS ORDERED: Acetaminophen 500 MG TAB PO SCH (14:30)
[2025-06-07] MEDS: Albumin 25% 25 GM (100 mL) BOT IVPB SCH (15:08)
[2025-06-07] MEDS: Acetaminophen 325 MG TAB PO PRN (16:27)
[2025-06-07] MEDS: diphenhydrAMINE 50 MG/ML VIAL IVP SCH (16:27)
[2025-06-07] MEDS: RITUXIMAB ARRX IVPB SCH (17:07)
[2025-06-07] MEDS: [UNRECOGNIZED DRUG - OTHER] IVPB SCH (17:07)
[2025-06-08 04:44] LABS: INR-International Normal Ratio 1.4; PTT 33.2 sec (22.9-36.1); Prothrombin Time 17.5 sec (12.0-14.7)
[2025-06-08 04:47] LABS: D-Dimer Test 2.46 mcg/mL (0.27-0.43); Platelet Count 23 10x3/uL (130-400)
[2025-06-08 04:48] LABS: ALT (SGPT) 11 U/L (Less than 45); AST (SGOT) 13 U/L (11-34); Albumin 4.0 g/dL (3.1-4.5); Alkaline Phosphatase 49 U/L (40-110); Anion Gap 13 mmol/L (10-20); BUN (Urea Nitrogen) 42 mg/dL (8.4-25.7); Bilirubin, Total 1.4 mg/dL (0.3-1.2); Calc. Creatinine Clearance 98 mL/min (70-130); Calcium 8.8 mg/dL (7.8-10.44); Carbon Dioxide 26 mmol/L (22-29); Chloride 100 mmol/L (98-107); Globulin 1.1 g/dL (2.4-3.5); Glucose 191 mg/dL (70-105); Potassium 3.5 mmol/L (3.5-5.1); Sodium 135 mmol/L (136-145)
[2025-06-08 04:49] LABS: Fibrinogen 127 mg/dL (253-463)
[2025-06-08 05:13] LABS: Hematocrit 19.7 % (42.0-52.0); Hemoglobin 6.6 g/dL (14.0-18.0); Mean Corpuscular Hemoglobin 28.3 pg (27.0-31.0); Mean Corpuscular Volume 84.5 fL (78.0-98.0); Platelet Count 23 10x3/uL (130-400); Red Blood Cell (RBC) Count 2.33 mill/uL (4.70-6.10); White Blood Cell (WBC) Count 0.91 10x3/uL (4.8-10.8)
[2025-06-08 08:33] LABS: Hematocrit 20.4 % (42.0-52.0); Hemoglobin 6.6 g/dL (14.0-18.0); Mean Corpuscular Hemoglobin 27.4 pg (27.0-31.0); Mean Corpuscular Volume 84.6 fL (78.0-98.0); Platelet Count 25 10x3/uL (130-400); Red Blood Cell (RBC) Count 2.41 mill/uL (4.70-6.10); White Blood Cell (WBC) Count 0.77 10x3/uL (4.8-10.8)
[2025-06-08 08:58] LABS: Ovalocytes SLIGHT = 2-5 cells HPF (0-1); Platelet Adequacy Comment Significant Decrease; Polychromasia SLIGHT = 2-3 cells HPF (0-2); Schistocytes SLIGHT = 2-5 cells HPF (0-1)
[2025-06-08] MEDS ORDERED: Iopamidol 370 76% 100 ML VIAL ONE (10:04)
[2025-06-08] MEDS ORDERED: Furosemide 40 MG (4 mL) VIAL SLOW IVP SCH (11:30)
[2025-06-08] MEDS: Albumin 25% 25 GM (100 mL) BOT IVPB SCH (14:49)
[2025-06-08 16:27] LABS: Hematocrit 22.4 % (42.0-52.0); Hemoglobin 7.3 g/dL (14.0-18.0); Platelet Count 22 10x3/uL (130-400)
[2025-06-08] MEDS: Furosemide 40 MG (4 mL) VIAL ONE (17:25)
[2025-06-08] MEDS: Furosemide 40 MG (4 mL) VIAL SLOW IVP SCH (17:36)
[2025-06-08 18:36] LABS: Actual Bicarbonate (HCO3v) 25.8 mEq/L (22-28); Base Excess 1.4 mEq/L (-2.0 to +3.0); Calcium, Ionized (venous) 1.15 mmol/L (1.16-1.32); Chloride (VBG) 97 mmol/L (98-106); Hematocrit-VBG 26 % (42.0-52.0); Hemoglobin (Hb) 8.7 g/dL (13.1-17.2); Potassium (VBG) 3.95 mmol/L (3.70-5.30); Sodium 133 mmol/L (133-146)
[2025-06-09 05:09] LABS: Platelet Count 20 10x3/uL (130-400)
[2025-06-09 05:12] LABS: Hematocrit 22.6 % (42.0-52.0); Hemoglobin 7.2 g/dL (14.0-18.0); Mean Corpuscular Hemoglobin 27.2 pg (27.0-31.0); Mean Corpuscular Volume 85.3 fL (78.0-98.0); Platelet Count 19 10x3/uL (130-400); Red Blood Cell (RBC) Count 2.65 mill/uL (4.70-6.10); White Blood Cell (WBC) Count 0.71 10x3/uL (4.8-10.8)
[2025-06-09 05:20] LABS: INR-International Normal Ratio 1.4; Prothrombin Time 17.0 sec (12.0-14.7)
[2025-06-09 05:21] LABS: PTT 31.9 sec (22.9-36.1)
[2025-06-09 05:24] LABS: D-Dimer Test 3.46 mcg/mL (0.27-0.43)
[2025-06-09 05:26] LABS: Fibrinogen 139 mg/dL (253-463)
[2025-06-09 05:30] LABS: ALT (SGPT) 10 U/L (Less than 45); AST (SGOT) 13 U/L (11-34); Albumin 4.2 g/dL (3.1-4.5); Alkaline Phosphatase 56 U/L (40-110); Anion Gap 17 mmol/L (10-20); BUN (Urea Nitrogen) 43 mg/dL (8.4-25.7); Bilirubin, Total 1.6 mg/dL (0.3-1.2); Calc. Creatinine Clearance 96 mL/min (70-130); Calcium 9.1 mg/dL (7.8-10.44); Carbon Dioxide 25 mmol/L (22-29); Chloride 100 mmol/L (98-107); Globulin 1.3 g/dL (2.4-3.5); Glucose 208 mg/dL (70-105); Potassium 3.8 mmol/L (3.5-5.1); Sodium 138 mmol/L (136-145)
[2025-06-09 05:52] LABS: Platelet Adequacy Comment Platelets Decreased; Polychromasia SLIGHT = 2-3 cells HPF (0-2)
[2025-06-09] MEDS: Furosemide 40 MG (4 mL) VIAL SLOW IVP SCH ×2 (09:26→17:08)
[2025-06-10 06:22] LABS: #Basophils Less than 0.03 10x3/uL (0.0-0.2); #Eosinophils Less than 0.03 10x3/uL (0.0-0.7); #Monocytes 0.07 10x3/uL (0.11-0.59); #Neutrophils 0.27 10x3/uL (1.40-6.50); %Basophils 0.0 % (0.0-1.0); %Eosinophils 0.0 % (0.0-10.0); %Lymphocytes 35.2 % (21.0-51.0); %Monocytes 13.0 % (0.0-10.0); %Neutrophils 49.9 % (42.0-75.0); Hematocrit 23.9 % (42.0-52.0); Hemoglobin 7.4 g/dL (14.0-18.0); Mean Corpuscular Hemoglobin 26.8 pg (27.0-31.0); Mean Corpuscular Volume 86.6 fL (78.0-98.0); Platelet Count 25 10x3/uL (130-400); Red Blood Cell (RBC) Count 2.76 mill/uL (4.70-6.10); White Blood Cell (WBC) Count 0.54 10x3/uL (4.8-10.8)
[2025-06-10 06:23] LABS: Platelet Count 25 10x3/uL (130-400)
[2025-06-10 06:28] LABS: Triglycerides 42.0 mg/dL (Less than 150)
[2025-06-10 06:31] LABS: ALT (SGPT) 15 U/L (Less than 45); AST (SGOT) 13 U/L (11-34); Albumin 4.3 g/dL (3.1-4.5); Alkaline Phosphatase 57 U/L (40-110); Anion Gap 19 mmol/L (10-20); BUN (Urea Nitrogen) 44 mg/dL (8.4-25.7); Bilirubin, Total 1.6 mg/dL (0.3-1.2); Calc. Creatinine Clearance 103 mL/min (70-130); Calcium 9.4 mg/dL (7.8-10.44); Carbon Dioxide 27 mmol/L (22-29); Chloride 100 mmol/L (98-107); Globulin 1.4 g/dL (2.4-3.5); Glucose 217 mg/dL (70-105); Potassium 3.5 mmol/L (3.5-5.1); Sodium 142 mmol/L (136-145)
[2025-06-10 06:33] LABS: Uric Acid 3.3 mg/dL (3.7-7.7)
[2025-06-10 06:44] LABS: INR-International Normal Ratio 1.4; PTT 27.8 sec (22.9-36.1); Prothrombin Time 17.4 sec (12.0-14.7)
[2025-06-10 06:47] LABS: D-Dimer Test 3.68 mcg/mL (0.27-0.43)
[2025-06-10 06:49] LABS: Fibrinogen 129 mg/dL (253-463)
[2025-06-10] MEDS: Torsemide 20 MG TAB PO SCH (09:20)
[2025-06-10] MEDS: Furosemide 40 MG (4 mL) VIAL SLOW IVP SCH (10:56)
[2025-06-10] MEDS: FILGRASTIM-AYOW 480 MCG/0.8 ML SYRINGE SC SCH (12:48)
[2025-06-11 05:18] LABS: Hematocrit 26.9 % (42.0-52.0); Hemoglobin 8.2 g/dL (14.0-18.0); Mean Corpuscular Hemoglobin 27.0 pg (27.0-31.0); Mean Corpuscular Volume 88.5 fL (78.0-98.0); Platelet Count 32 10x3/uL (130-400); Red Blood Cell (RBC) Count 3.04 mill/uL (4.70-6.10); White Blood Cell (WBC) Count 0.97 10x3/uL (4.8-10.8)
[2025-06-11 05:27] LABS: INR-International Normal Ratio 1.5; PTT 28.7 sec (22.9-36.1); Platelet Count 31 10x3/uL (130-400); Prothrombin Time 17.9 sec (12.0-14.7)
[2025-06-11 05:28] LABS: ALT (SGPT) 15 U/L (Less than 45); AST (SGOT) 13 U/L (11-34); Albumin 4.3 g/dL (3.1-4.5); Alkaline Phosphatase 62 U/L (40-110); Anion Gap 17 mmol/L (10-20); BUN (Urea Nitrogen) 42 mg/dL (8.4-25.7); Bilirubin, Total 2.1 mg/dL (0.3-1.2); Calc. Creatinine Clearance 98 mL/min (70-130); Calcium 9.5 mg/dL (7.8-10.44); Carbon Dioxide 29 mmol/L (22-29); Chloride 99 mmol/L (98-107); Globulin 1.5 g/dL (2.4-3.5); Glucose 222 mg/dL (70-105); Potassium 3.7 mmol/L (3.5-5.1); Sodium 141 mmol/L (136-145)
[2025-06-11 05:31] LABS: Fibrinogen 127 mg/dL (253-463)
[2025-06-11 05:35] LABS: D-Dimer Test 3.26 mcg/mL (0.27-0.43)
[2025-06-11 05:42] LABS: Nucleated RBC (Manual Ct) 1 % (0); Platelet Adequacy Comment Platelets Decreased
[2025-06-11] MEDS: FILGRASTIM-AYOW 480 MCG/0.8 ML SYRINGE SC SCH (12:30)
[2025-06-12 05:04] LABS: Platelet Count 30 10x3/uL (130-400)
[2025-06-12 05:11] LABS: #Basophils Less than 0.03 10x3/uL (0.0-0.2); #Eosinophils Less than 0.03 10x3/uL (0.0-0.7); #Monocytes 0.11 10x3/uL (0.11-0.59); #Neutrophils 0.46 10x3/uL (1.40-6.50); %Basophils 1.0 % (0.0-1.0); %Eosinophils 0.0 % (0.0-10.0); %Lymphocytes 33.7 % (21.0-51.0); %Monocytes 10.6 % (0.0-10.0); %Neutrophils 44.1 % (42.0-75.0); Hematocrit 24.2 % (42.0-52.0); Hemoglobin 7.5 g/dL (14.0-18.0); Mean Corpuscular Hemoglobin 27.2 pg (27.0-31.0); Mean Corpuscular Volume 87.7 fL (78.0-98.0); Platelet Count 31 10x3/uL (130-400); Red Blood Cell (RBC) Count 2.76 mill/uL (4.70-6.10); White Blood Cell (WBC) Count 1.04 10x3/uL (4.8-10.8)
[2025-06-12 05:16] LABS: INR-International Normal Ratio 1.5; PTT 30.1 sec (22.9-36.1); Prothrombin Time 17.9 sec (12.0-14.7)
[2025-06-12 05:17] LABS: D-Dimer Test 2.83 mcg/mL (0.27-0.43)
[2025-06-12 05:18] LABS: Albumin 3.9 g/dL (3.1-4.5); Anion Gap 16 mmol/L (10-20); BUN (Urea Nitrogen) 38 mg/dL (8.4-25.7); BUN/Creatinine Ratio 48.72; Calc. Creatinine Clearance 121 mL/min (70-130); Calcium 9.4 mg/dL (7.8-10.44); Carbon Dioxide 33 mmol/L (22-29); Chloride 98 mmol/L (98-107); Glucose 167 mg/dL (70-105); Potassium 3.7 mmol/L (3.5-5.1); Sodium 143 mmol/L (136-145)
[2025-06-12 05:20] LABS: Fibrinogen 142 mg/dL (253-463)
[2025-06-12] MEDS ORDERED: Electrolyte Replacement Protocol 1 EACH FS SCH (05:30)
[2025-06-12] MEDS ORDERED: Magnesium 2 GM/50 ML(in water) 2 GM in Premix 1 BAG IVPB PRN (05:30)
[2025-06-12] MEDS ORDERED: Potassium Chloride 20 MEQ in Premix 1 BAG IVPB PRN (05:30)
[2025-06-12] MEDS ORDERED: PHOS-NAK 1 PKT PACK PO PRN (05:30)
[2025-06-12 06:29] LABS: Magnesium 1.7 mg/dL (1.6-2.6)
[2025-06-12] MEDS: Potassium Phosphate 30 MMOL in Sodium Chloride 0.9% 250 ML 250 ML IVPB SCH (07:48)
[2025-06-13 04:55] LABS: Albumin 3.9 g/dL (3.1-4.5); Anion Gap 14 mmol/L (10-20); BUN (Urea Nitrogen) 33 mg/dL (8.4-25.7); BUN/Creatinine Ratio 46.48; Calc. Creatinine Clearance 132 mL/min (70-130); Calcium 9.7 mg/dL (7.8-10.44); Carbon Dioxide 29 mmol/L (22-29); Chloride 102 mmol/L (98-107); Glucose 175 mg/dL (70-105); Potassium 3.9 mmol/L (3.5-5.1); Sodium 141 mmol/L (136-145)
[2025-06-13 05:08] LABS: Hematocrit 25.4 % (42.0-52.0); Hemoglobin 8.0 g/dL (14.0-18.0); Mean Corpuscular Hemoglobin 27.6 pg (27.0-31.0); Mean Corpuscular Volume 87.6 fL (78.0-98.0); Platelet Count 27 10x3/uL (130-400); Red Blood Cell (RBC) Count 2.90 mill/uL (4.70-6.10); White Blood Cell (WBC) Count 1.33 10x3/uL (4.8-10.8)
[2025-06-13 05:52] LABS: Platelet Adequacy Comment Platelets Decreased
[2025-06-13] MEDS: Potassium Phosphate 30 MMOL in Sodium Chloride 0.9% 250 ML 250 ML IVPB SCH (09:00)
[2025-06-14 04:58] LABS: Albumin 3.8 g/dL (3.1-4.5); Anion Gap 14 mmol/L (10-20); BUN (Urea Nitrogen) 35 mg/dL (8.4-25.7); BUN/Creatinine Ratio 38.89; Calc. Creatinine Clearance 98 mL/min (70-130); Calcium 9.4 mg/dL (7.8-10.44); Carbon Dioxide 25 mmol/L (22-29); Chloride 105 mmol/L (98-107); Glucose 182 mg/dL (70-105); Potassium 4.0 mmol/L (3.5-5.1); Sodium 140 mmol/L (136-145)
[2025-06-14 04:59] LABS: #Basophils Less than 0.03 10x3/uL (0.0-0.2); #Eosinophils Less than 0.03 10x3/uL (0.0-0.7); #Monocytes 0.20 10x3/uL (0.11-0.59); #Neutrophils 0.89 10x3/uL (1.40-6.50); %Basophils 0.6 % (0.0-1.0); %Eosinophils 0.6 % (0.0-10.0); %Lymphocytes 26.1 % (21.0-51.0); %Monocytes 12.4 % (0.0-10.0); %Neutrophils 55.3 % (42.0-75.0); Hematocrit 26.5 % (42.0-52.0); Hemoglobin 8.2 g/dL (14.0-18.0); Mean Corpuscular Hemoglobin 27.3 pg (27.0-31.0); Mean Corpuscular Volume 88.3 fL (78.0-98.0); Platelet Count 29 10x3/uL (130-400); Red Blood Cell (RBC) Count 3.00 mill/uL (4.70-6.10); White Blood Cell (WBC) Count 1.61 10x3/uL (4.8-10.8)
[2025-06-14 13:41] VITALS: BMI 20.7
[2025-06-14] MEDS: PHOS-NAK 1 PKT PACK PO SCH (14:16)
[2025-06-15 05:05] LABS: Hematocrit 26.5 % (42.0-52.0); Hemoglobin 8.2 g/dL (14.0-18.0); Mean Corpuscular Hemoglobin 27.0 pg (27.0-31.0); Mean Corpuscular Volume 87.2 fL (78.0-98.0); Platelet Count 29 10x3/uL (130-400); Red Blood Cell (RBC) Count 3.04 mill/uL (4.70-6.10); White Blood Cell (WBC) Count 1.60 10x3/uL (4.8-10.8)
[2025-06-15 05:15] LABS: Albumin 3.9 g/dL (3.1-4.5); Anion Gap 13 mmol/L (10-20); BUN (Urea Nitrogen) 34 mg/dL (8.4-25.7); BUN/Creatinine Ratio 39.08; Calc. Creatinine Clearance 93 mL/min (70-130); Calcium 9.6 mg/dL (7.8-10.44); Carbon Dioxide 24 mmol/L (22-29); Chloride 106 mmol/L (98-107); Glucose 177 mg/dL (70-105); Potassium 4.4 mmol/L (3.5-5.1); Sodium 139 mmol/L (136-145)
[2025-06-15 05:38] LABS: Anisocytosis SLIGHT = 6-15 cells HPF (0-5); Platelet Adequacy Comment Platelets Decreased; Poikilocytosis SLIGHT = 6-15 cells HPF (0-5)
[2025-06-15] MEDS: predniSONE 20 MG TAB PO SCH (08:44)
[2025-06-16 04:46] LABS: Hematocrit 26.3 % (42.0-52.0); Hemoglobin 8.6 g/dL (14.0-18.0); Mean Corpuscular Hemoglobin 27.7 pg (27.0-31.0); Mean Corpuscular Volume 84.6 fL (78.0-98.0); Platelet Count 29 10x3/uL (130-400); Red Blood Cell (RBC) Count 3.11 mill/uL (4.70-6.10); White Blood Cell (WBC) Count 2.08 10x3/uL (4.8-10.8)
[2025-06-16 04:53] LABS: Albumin 4.0 g/dL (3.1-4.5); Anion Gap 14 mmol/L (10-20); BUN (Urea Nitrogen) 36 mg/dL (8.4-25.7); BUN/Creatinine Ratio 43.90; Calc. Creatinine Clearance 95 mL/min (70-130); Calcium 9.6 mg/dL (7.8-10.44); Carbon Dioxide 22 mmol/L (22-29); Chloride 105 mmol/L (98-107); Glucose 176 mg/dL (70-105); Magnesium 1.8 mg/dL (1.6-2.6); Potassium 3.9 mmol/L (3.5-5.1); Sodium 137 mmol/L (136-145)
[2025-06-16 05:16] LABS: Platelet Adequacy Comment Platelets Decreased; Schistocytes SLIGHT = 2-5 cells HPF (0-1); Smudge Cells 35.3 %
[2025-06-16 16:32] VITALS: BMI 19.8
[2025-06-17 05:58] LABS: Hematocrit 27.8 % (42.0-52.0); Hemoglobin 8.9 g/dL (14.0-18.0); Mean Corpuscular Hemoglobin 27.3 pg (27.0-31.0); Mean Corpuscular Volume 85.3 fL (78.0-98.0); Platelet Count 32 10x3/uL (130-400); Red Blood Cell (RBC) Count 3.26 mill/uL (4.70-6.10); White Blood Cell (WBC) Count 2.41 10x3/uL (4.8-10.8)
[2025-06-17 06:09] LABS: Albumin 4.1 g/dL (3.1-4.5); Anion Gap 16 mmol/L (10-20); BUN (Urea Nitrogen) 33 mg/dL (8.4-25.7); BUN/Creatinine Ratio 41.77; Calc. Creatinine Clearance 48 mL/min (70-130); Calcium 9.6 mg/dL (7.8-10.44); Carbon Dioxide 20 mmol/L (22-29); Chloride 106 mmol/L (98-107); Glucose 146 mg/dL (70-105); Potassium 3.9 mmol/L (3.5-5.1); Sodium 138 mmol/L (136-145)
[2025-06-17 06:47] LABS: Anisocytosis SLIGHT = 6-15 cells HPF (0-5); Platelet Adequacy Comment Significant Decrease; Smudge Cells 15.2 %
[2025-06-17] MEDS: Sodium Bicarbonate Tab 325 MG TAB PO SCH (08:35)
[2025-06-17] MEDS: Torsemide 20 MG TAB PO SCH (08:37)
[2025-06-17] MEDS ORDERED: Torsemide 20 MG TAB PO SCH (09:00)
[2025-06-18 07:00] LABS: Hematocrit 28.6 % (42.0-52.0); Hemoglobin 9.3 g/dL (14.0-18.0); Mean Corpuscular Hemoglobin 27.1 pg (27.0-31.0); Mean Corpuscular Volume 83.4 fL (78.0-98.0); Platelet Count 33 10x3/uL (130-400); Red Blood Cell (RBC) Count 3.43 mill/uL (4.70-6.10); White Blood Cell (WBC) Count 2.98 10x3/uL (4.8-10.8)
[2025-06-18 07:34] LABS: Ovalocytes SLIGHT = 2-5 cells HPF (0-1); Platelet Adequacy Comment Significant Decrease; Polychromasia SLIGHT = 2-3 cells HPF (0-2)
[2025-06-18 09:24] LABS: Albumin 4.3 g/dL (3.1-4.5); Anion Gap 15 mmol/L (10-20); BUN (Urea Nitrogen) 35 mg/dL (8.4-25.7); BUN/Creatinine Ratio 38.04; Calc. Creatinine Clearance 80 mL/min (70-130); Calcium 9.8 mg/dL (7.8-10.44); Carbon Dioxide 24 mmol/L (22-29); Chloride 104 mmol/L (98-107); Glucose 108 mg/dL (70-105); Potassium 4.0 mmol/L (3.5-5.1); Sodium 139 mmol/L (136-145)
[2025-06-19 06:14] LABS: Hematocrit 29.7 % (42.0-52.0); Hemoglobin 9.7 g/dL (14.0-18.0); Mean Corpuscular Hemoglobin 27.3 pg (27.0-31.0); Mean Corpuscular Volume 83.7 fL (78.0-98.0); Platelet Count 39 10x3/uL (130-400); Red Blood Cell (RBC) Count 3.55 mill/uL (4.70-6.10); White Blood Cell (WBC) Count 3.92 10x3/uL (4.8-10.8)
[2025-06-19 06:25] LABS: Albumin 4.4 g/dL (3.1-4.5); Anion Gap 16 mmol/L (10-20); BUN (Urea Nitrogen) 39 mg/dL (8.4-25.7); BUN/Creatinine Ratio 48.15; Calc. Creatinine Clearance 91 mL/min (70-130); Calcium 10.0 mg/dL (7.8-10.44); Carbon Dioxide 25 mmol/L (22-29); Chloride 102 mmol/L (98-107); Glucose 124 mg/dL (70-105); Potassium 3.9 mmol/L (3.5-5.1); Sodium 139 mmol/L (136-145)
[2025-06-19 06:47] LABS: Anisocytosis SLIGHT = 6-15 cells HPF (0-5); Ovalocytes SLIGHT = 2-5 cells HPF (0-1); Platelet Adequacy Comment Significant Decrease; Polychromasia SLIGHT = 2-3 cells HPF (0-2)
[2025-06-19 07:11] LABS: Poikilocytosis SLIGHT = 6-15 cells HPF (0-5); Smudge Cells 31.8 %
[2025-06-20 04:48] LABS: Albumin 4.5 g/dL (3.1-4.5); Anion Gap 16 mmol/L (10-20); BUN (Urea Nitrogen) 38 mg/dL (8.4-25.7); BUN/Creatinine Ratio 48.10; Calc. Creatinine Clearance 88 mL/min (70-130); Calcium 10.2 mg/dL (7.8-10.44); Carbon Dioxide 25 mmol/L (22-29); Chloride 101 mmol/L (98-107); Glucose 129 mg/dL (70-105); Potassium 4.0 mmol/L (3.5-5.1); Sodium 138 mmol/L (136-145)
[2025-06-20 04:54] LABS: Hematocrit 30.0 % (42.0-52.0); Hemoglobin 9.7 g/dL (14.0-18.0); Mean Corpuscular Hemoglobin 27.0 pg (27.0-31.0); Mean Corpuscular Volume 83.6 fL (78.0-98.0); Platelet Count 44 10x3/uL (130-400); Red Blood Cell (RBC) Count 3.59 mill/uL (4.70-6.10); White Blood Cell (WBC) Count 4.24 10x3/uL (4.8-10.8)
[2025-06-20 06:26] LABS: Platelet Adequacy Comment Platelets Decreased; Schistocytes SLIGHT = 2-5 cells HPF (0-1); Smudge Cells 11.3 %
[2025-06-20] MEDS: predniSONE 20 MG TAB PO SCH (12:12)
[2025-06-20 16:55] VITALS: BP 130/76; TEMP 97.3
[2025-06-24] MEDS ORDERED: predniSONE 20 MG TAB PO SCH (08:00)
== END 2025-06-20 17:05 | DRG 682 ==
LOC: ERS 13:09 → ERHOLD 16:20 → T4-A 18:20 → MSONC 06-07 13:39
PROVIDERS: ADMIT Internal Medicine; ATTEND Family Medicine
PROC: 30233J1 Transfusion of Nonautologous Serum Albumin into Peripheral Vein, Percutaneous Approach (ICD-10-PCS; principal; 2025-06-01)
PROC: 3E03329 Introduction of Other Anti-infective into Peripheral Vein, Percutaneous Approach (ICD-10-PCS; 2025-06-05)
PROC: 30233N1 Transfusion of Nonautologous Red Blood Cells into Peripheral Vein, Percutaneous Approach (ICD-10-PCS; 2025-06-07)
PROC: 6A551Z2 Pheresis of Platelets, Multiple (ICD-10-PCS; 2025-06-09)
DX: N17.9 Acute kidney failure, unspecified (principal); E43 Unspecified severe protein-calorie malnutrition; J96.01 Acute respiratory failure with hypoxia; C91.10 Chronic lymphocytic leukemia of B-cell type not having achieved remission; J90 Pleural effusion, not elsewhere classified; D61.818 Other pancytopenia; J98.11 Atelectasis; N30.00 Acute cystitis without hematuria; D68.2 Hereditary deficiency of other clotting factors; I50.30 Unspecified diastolic (congestive) heart failure; E87.1 Hypo-osmolality and hyponatremia; E87.20 Acidosis, unspecified; E87.3 Alkalosis; E87.70 Fluid overload, unspecified; E88.3 Tumor lysis syndrome; R62.7 Adult failure to thrive; Z98.890 Other specified postprocedural states; F10.90 Alcohol use, unspecified, uncomplicated; Z99.3 Dependence on wheelchair; E87.5 Hyperkalemia; Z92.21 Personal history of antineoplastic chemotherapy; E86.9 Volume depletion, unspecified; E79.0 Hyperuricemia without signs of inflammatory arthritis and tophaceous disease; E88.09 Other disorders of plasma-protein metabolism, not elsewhere classified; R16.1 Splenomegaly, not elsewhere classified; Z80.42 Family history of malignant neoplasm of prostate; K59.00 Constipation, unspecified; B95.2 Enterococcus as the cause of diseases classified elsewhere; E87.6 Hypokalemia; I86.8 Varicose veins of other specified sites; R91.1 Solitary pulmonary nodule; E83.39 Other disorders of phosphorus metabolism; R21 Rash and other nonspecific skin eruption; R53.81 Other malaise; Z79.899 Other long term (current) drug therapy; R91.8 Other nonspecific abnormal finding of lung field
CPT/HCPCS: 36415; 36430; 71045; 71046; 71260; 74177; 80053; 80069; 81001; 82533; 82728; 82805; 83010; 83540; 83550; 83615; 83735; 84100; 84443; 84478; 84484; 84550; 85025; 85027; 85046; 85049; 85300; 85362; 85384; 85610; 85730; 86850; 86900; 86901; 87077; 87086; 87186; 93005; J1200; J1447; J1940; J1956; J2543; J3480; J7030; J7050; J7512; P9016; P9035; P9047; Q5123; Q9967